=== PATIENT | male | born 1955 | race Caucasian/White ===

== ENCOUNTER 2021-07-28 07:10 | Day surgery (SDC) | payer OTHER ==
[~2021-07-28] VITALS: Ht 177.8 cm; Wt 100.0 kg
[~2021-07-28 07:10] MED LIST: CHLORPROMAZINE25 MG PO; CITALOPRAM HBR40 MG PO; CYANOCOBAL1000 MCG/M IM; IRON18 MG PO; OMEPRAZOLE20 MG PO; PRENATA CHEWAB1 EACH PO; TRAZODONE HCL50 MG PO
--- NOTE | 2021-07-28 09:36 | NUR ---
07/28/21 0936 Kathrine Verde 0931- PT ARRIVES TO PACU AWAKE AND TALKING. PT REPORTS NO PAIN OR NAUSEA. RESP EVEN AND UNLABORED. OXYGEN SAT HIGH 90'S TO 100% ON 2L VIA NC. 0936- OXYGEN TITRATED OFF.
--- NOTE | 2021-07-29 11:38 | OR ---
[facility] [address], [place] [address] Signed DATE OF OPERATION: 07/28/2021 SURGEON: Armando Henderson MD PREOPERATIVE DIAGNOSIS: Chronic constipation. POSTOPERATIVE DIAGNOSIS: Several small polyps. No lesion to account for constipation. PROCEDURE: Total colonoscopy to cecum with cold snare polypectomy x2, cold morcellation polypectomy x4. ANESTHESIA: Intravenous sedation; fentanyl 100 mcg and Versed 9 mg. INDICATION: This 65-year-old white man is a patient of VIVEK Puga of [place], [place]. He has been referred with complaints of constipation. He has had possible rectal bleeding over time as well. He has a history of multiple polyps on 3 separate occasions, but no known family history of Thomson syndrome or FAP. His last colonoscopy was [address] Will in [place], [place]. The patient has had episodes of having 21 polyps, 23 polyps, and 17 polyps on separate occasions, he tells me. Notably, his father at age 67 from colon cancer as well as a paternal aunt, who had colon cancer and his father at age 55 from colon cancer. Understanding all this, he wishes to proceed with colonoscopy. Notably, he was taking what sounds like magnesium citrate on a routine basis and had developed numerous skin lesions over his lower extremities. These have been apparently biopsied showing no sign of infectious cause or neoplasm. They were in someway attributed to his magnesium medication use for his constipation, though that it is uncertain to me at this time. The patient understands the risks of bleeding, infection, and perforation related to colonoscopy and wished to proceed. FINDINGS: The prep was quite good. Complete colonoscopy was undertaken to the cecum. He had several polyps, none of them worrisome for malignancy. All of them small and at least Electronically Signed By: ARMANDO HENDERSON MD 07/29/21 1138 PATIENT NAME: CHENG PASTOR OPERATIVE REPORT DATE OF : 59 REPORT #: [id number] PHYSICIAN: ARMANDO HENDERSON MD PCP: PRAVIN MERCEDES PA-C REPORT IS CONFIDENTIAL AND NOT TO BE RELEASED WITHOUT AUTHORIZATION [facility] [address], [place] [address] Signed half of them consistent with adenomas, but the rectal polyps, most consistent with hyperplastic polyps. There was no evidence of diverticulosis. No sign of stricture, ischemic change, and no lesion to account for constipation in any way. PROCEDURE: The patient was brought to the surgical endoscopy suite and placed in lateral decubitus position, given intravenous sedation to the point of slurred speech and nystagmus with full cardiopulmonary monitoring. Digital rectal examination was normal. An Olympus video colonoscope was passed in the rectum and manipulated throughout the colon showing an adenomatous-appearing polyp of the right colon. This was excised with cold snare technique and passed for pathology. Scope was then advanced further ultimately to the area of the cecum. The area behind the ileocecal valve could not be fully visualized and therefore it was grasped with a biopsy Forceps elevated and showed no evidence of polypoid change there. The scope was then withdrawn from the cecum and the area of previous polypectomy was identified and found to be hemostatic. Further withdrawal of the scope was undertaken and in the proximal descending colon was a small polyp, which was excised with cold snare technique. Further withdrawal showed another polyp nearby, excised with cold morcellation technique. The scope was withdrawn to the sigmoid area where another small polyp was noted. This was excised with combination of cold snare and cold morcellation technique. The sigmoid had no evidence of diverticulosis. Within the rectum were several areas of polyps, all of them appearing hyperplastic except one. These were all excised with cold snare or cold morcellation technique. Retroflexed view showed no other findings of concern. Scope was removed and the patient was taken to the recovery room in good condition. CONCLUDING DIAGNOSIS: Multiple polyps, none of them worrisome for malignancy. PLAN: We would recommend MiraLAX to be taken on a daily basis to maintain his bowel function. If constipation is noted to be persistent, consideration would be made for a sitzmark test to assess for dysmotility of the colon. Given the current logistical difficulties in [place], I will plan to see him back in the office in a month or so and review his progress, pathology report, and so on. Armando Henderson MD Electronically Signed By: ARMANDO HENDERSON MD 07/29/21 1138 PATIENT NAME: CHENG PASTOR OPERATIVE REPORT DATE OF : 59 REPORT #: [id number] PHYSICIAN: ARMANDO HENDERSON MD PCP: PRAVIN MERCEDES PA-C REPORT IS CONFIDENTIAL AND NOT TO BE RELEASED WITHOUT AUTHORIZATION [facility] [address] [place] [id number] Signed BISI/JERARDO /[id number] cc: VIVEK Puga [place], [place] Copies: ~ Electronically Signed By: ARMANDO HENDERSON MD 07/29/21 1138 PATIENT NAME: CHENG PASTOR OPERATIVE REPORT DATE OF : 59 REPORT #: [id number] PHYSICIAN: ARMANDO HENDERSON MD PCP: PRAVIN MERCEDES PA-C REPORT IS CONFIDENTIAL AND NOT TO BE RELEASED WITHOUT AUTHORIZATION
== END 2021-07-28 10:14 | disposition home or self-care (01) ==
LOC: DS 07:10 → OPS 07:10 → DS 13:00
PROVIDERS: ATTEND Surgery
PROC: 0DBN8ZZ Excision of Sigmoid Colon, Via Natural or Artificial Opening Endoscopic (ICD-10-PCS; 2021-07-28)
PROC: 0DBP8ZZ Excision of Rectum, Via Natural or Artificial Opening Endoscopic (ICD-10-PCS; 2021-07-28)
PROC: 0DBF8ZZ Excision of Right Large Intestine, Via Natural or Artificial Opening Endoscopic (ICD-10-PCS; 2021-07-28)
PROC: 0DBM8ZZ Excision of Descending Colon, Via Natural or Artificial Opening Endoscopic (ICD-10-PCS; 2021-07-28)
PROC: 0DBM8ZZ Excision of Descending Colon, Via Natural or Artificial Opening Endoscopic (ICD-10-PCS; principal; 2021-07-28 08:15)
DX: K59.09 Other constipation (principal); D12.2 Benign neoplasm of ascending colon; D12.5 Benign neoplasm of sigmoid colon; K62.1 Rectal polyp; F17.210 Nicotine dependence, cigarettes, uncomplicated; R03.0 Elevated blood-pressure reading, without diagnosis of hypertension; J44.9 Chronic obstructive pulmonary disease, unspecified; K21.9 Gastro-esophageal reflux disease without esophagitis; Z80.0 Family history of malignant neoplasm of digestive organs
CPT/HCPCS: 99153; G0500; J2250; J3010; J7121